=== PATIENT | female | born 1995 ===

== ENCOUNTER 2017-07-05 13:11 | Emergency (ER) | payer OTHER ==
[~2017-07-05] VITALS: Ht 157.5 cm; Wt 54.0 kg
[2017-07-05] MEDS ORDERED: PRENATABS RX T1 EACH (13:35)
[2017-07-05] MEDS ORDERED: FOLIC ACID0.4 MG (13:35)
== END 2017-07-05 18:48 | disposition home or self-care (01) ==
LOC: ER 13:11
DX: O99.013 Anemia complicating pregnancy, third trimester (principal); D64.89 Other specified anemias; Z34.01 Encounter for supervision of normal first pregnancy, first trimester

== ENCOUNTER 2017-07-07 20:11 | Inpatient (IN) | payer OTHER ==
[~2017-07-07] VITALS: Ht 157.5 cm; Wt 54.4 kg
[~2017-07-07 20:11] MED LIST: FOLIC ACID0.4 MG; PRENATABS RX T1 EACH
[2017-07-08] MEDS ORDERED: IRON1TAB4 PO (14:13)
== END 2017-07-08 17:16 | disposition home or self-care (01) | DRG 781 ==
LOC: OB/GYN 20:11
PROC: 4A1HXCZ Monitoring of Products of Conception, Cardiac Rate, External Approach (ICD-10-PCS; 2017-07-07)
PROC: 30233N1 Transfusion of Nonautologous Red Blood Cells into Peripheral Vein, Percutaneous Approach (ICD-10-PCS; principal; 2017-07-08)
DX: O99.013 Anemia complicating pregnancy, third trimester (principal)

== ENCOUNTER 2017-08-24 15:30 | Inpatient (IN) | payer OTHER ==
[~2017-08-24] VITALS: Ht 157.5 cm; Wt 57.6 kg
[~2017-08-24 15:30] MED LIST changes: +IRON1TAB4 PO
[2017-08-31] MEDS ORDERED: FERROUS SULFAT325 MG PO (12:41)
== END 2017-08-31 15:31 | disposition home or self-care (01) | DRG 775 ==
LOC: LDR 08-29 07:33 → OB/GYN 08-29 07:33 → LDR 08-29 07:42 → OB/GYN 08-29 17:46
PROC: 10E0XZZ Delivery of Products of Conception, External Approach (ICD-10-PCS; principal; 2017-08-29)
PROC: 0HQ9XZZ Repair Perineum Skin, External Approach (ICD-10-PCS; 2017-08-29)
PROC: 10907ZC Drainage of Amniotic Fluid, Therapeutic from Products of Conception, Via Natural or Artificial Opening (ICD-10-PCS; 2017-08-29)
PROC: 4A033R1 Measurement of Arterial Saturation, Peripheral, Percutaneous Approach (ICD-10-PCS; 2017-08-29)
PROC: 4A1HXCZ Monitoring of Products of Conception, Cardiac Rate, External Approach (ICD-10-PCS; 2017-08-29)
DX: O70.0 First degree perineal laceration during delivery (principal); O99.02 Anemia complicating childbirth; Z3A.39 39 weeks gestation of pregnancy; Z37.0 Single live birth